=== PATIENT | male | born 2005 | race Hispanic/Latino ===

== ENCOUNTER → 2024-08-25 | Day surgery (SDC) | payer BC ==
[~2024-08-25] MED LIST: ACETAMINOPHEN 1000 MG/100 ML 100 ML IV ONE; FENTANYL CITRATE/PF 100MCG/2 ML INJ ONE; HYDROCODONE/APAP 7.5MG-325MG 1 EA TAB ONE; LIDOCAINE HCL 2% LOCAL INJ 5 ML SDV VIAL INJ ONE; MIDAZOLAM HCL 2 MG/2 ML VIAL ONE; PROPOFOL IV EMULSION 10 MG/ML 20 ML VIAL ONE
[2024-08-25] MEDS: LACTATED RINGER'S 1,000 ML ONE (08:08)
[2024-08-25] MEDS: HYDROCODONE/APAP 7.5MG-325MG 1 EA TAB PO ONE (10:48)
[2024-08-25 11:21] VITALS: BP 131/78; PULSE 81; RESP 19; O2SAT 97
== END | disposition home or self-care (01) ==
LOC: OR 07:19
PROVIDERS: ATTEND Specialist
DX: M23.251 Derangement of posterior horn of lateral meniscus due to old tear or injury, right knee (principal)
CPT/HCPCS: 29881; J0131; J0690; J2003; J2250; J2704; J3010; J7121